=== PATIENT | female | born 1930 | race Caucasian/White ===

== ENCOUNTER → 2016-08-24 | Outpatient (REF) | payer MEDICARE, BC ==
[~2016-08-24] MED LIST: ACET500T37 PO; ASPI81TA21 PO; CALCTAB75 PO; CARV12.5 PO; CO Q100C10 PO; CRES5TAB PO; DESO0.254 TOP; FOLI1TAB2 PO; FURO40TA2 PO; HUMA100I3 SC; INSUDET SC; LOSA25TA8 PO; METH2.5TA PO; PEPCCHW3 PO; TRIA0.5O TOP; ZYLO300T4 PO
== END ==
LOC: M LAB REF 16:54
PROVIDERS: ATTEND Nurse Practitioner Adult Health
DX: D50.9 Iron deficiency anemia, unspecified (principal); D63.1 Anemia in chronic kidney disease; N18.9 Chronic kidney disease, unspecified

== ENCOUNTER → 2016-12-13 | Outpatient (REF) | payer MEDICARE, BC ==
[~2016-12-13] MED LIST changes: +ACET-683 PO; -ACET500T37 PO; +CLIN150C14 PO; -FOLI1TAB2 PO; +FOLI1TAB4 PO; +XARE15TA PO
== END ==
LOC: M LAB REF 15:36
PROVIDERS: ATTEND Nurse Practitioner Family
DX: L08.9 Local infection of the skin and subcutaneous tissue, unspecified (principal)

== ENCOUNTER → 2016-12-19 | Outpatient (REF) | payer MEDICARE, BC ==
[2016-12-19 19:58] LABS: FOLATE > 24.0 NG/ML (>5.4)
== END ==
LOC: M LAB REF 17:27
PROVIDERS: ATTEND Nurse Practitioner Family
DX: R41.81 Age-related cognitive decline (principal); R21 Rash and other nonspecific skin eruption

== ENCOUNTER → 2016-12-19 | Outpatient (REF) | payer MEDICARE, BC | LOC: M LAB REF 16:54 | PROVIDERS: ATTEND Nurse Practitioner Family | DX: R21 Rash and other nonspecific skin eruption (principal) ==

== ENCOUNTER 2016-12-22 15:06 | Emergency (ER) | payer MEDICARE, BC ==
[~2016-12-22] VITALS: Ht 162.6 cm; Wt 84.3 kg
[~2016-12-22 15:06] MED LIST changes: -CLIN150C14 PO; -XARE15TA PO
[2016-12-22] MEDS ORDERED: XARE15TA PO (15:32)
[2016-12-22] MEDS ORDERED: CLIN150C14 PO (16:57)
[2016-12-22] MEDS ORDERED: CLINDAMYCIN 150 MG CAP PO ONE (17:00)
[2016-12-22 17:20] VITALS: BP 138/86
== END 2016-12-22 17:21 | disposition home or self-care (01) ==
LOC: M ED 15:06
DX: L08.89 Other specified local infections of the skin and subcutaneous tissue (principal); Z87.891 Personal history of nicotine dependence; Z86.73 Personal history of transient ischemic attack (TIA), and cerebral infarction without residual deficits; F03.90 Unspecified dementia, unspecified severity, without behavioral disturbance, psychotic disturbance, mood disturbance, and anxiety; I10 Essential (primary) hypertension; Z86.718 Personal history of other venous thrombosis and embolism; K57.30 Diverticulosis of large intestine without perforation or abscess without bleeding; N28.9 Disorder of kidney and ureter, unspecified; E11.9 Type 2 diabetes mellitus without complications; M79.9 Soft tissue disorder, unspecified; Z79.4 Long term (current) use of insulin; Z79.899 Other long term (current) drug therapy; Z88.5 Allergy status to narcotic agent; Z88.0 Allergy status to penicillin; Z88.8 Allergy status to other drugs, medicaments and biological substances; Z88.1 Allergy status to other antibiotic agents

== ENCOUNTER → 2017-04-28 | Outpatient (REF) | payer MEDICARE, BC ==
[~2017-04-28] MED LIST changes: +CLIN150C14 PO; +XARE15TA PO
== END ==
LOC: M LAB REF 16:26
PROVIDERS: ATTEND Nurse Practitioner Family
DX: S31.104A Unspecified open wound of abdominal wall, left lower quadrant without penetration into peritoneal cavity, initial encounter (principal); W18.30XA Fall on same level, unspecified, initial encounter; Y92.009 Unspecified place in unspecified non-institutional (private) residence as the place of occurrence of the external cause